=== PATIENT | male | born 1970 | race Caucasian/White ===

== ENCOUNTER 2019-08-31 14:39 | Outpatient (REF) | payer OTHER, SELFPAY ==
[2019-08-31 21:19] LABS: Abs Immature Grans 0.01 k/cumm (0.0-0.09); Absolute Basophil Count 0.03 k/cumm (0.0-0.2); Absolute Eosinophil Count 0.02 k/cumm (0.0-0.7); Absolute Lymphocyte Count 1.31 k/cumm (1.2-3.4); Absolute Monocyte Count 0.51 k/cumm (0.11-0.7); Absolute Neutrophil Count 3.41 k/cumm (1.2-6.7); Basophils % 0.6; Eosinophils % 0.4; HCT 40.5 % (40.0-50.0); HGB 13.8 g/dL (13.5-17.5); Immature Grans % 0.2 %; Lymphocytes % 24.8; Mean Corp. HGB Concentration 34.1 g/dL (32.0-36.0); Mean Corpuscular Hemoglobin 30.1 pg (27.0-33.0); Mean Corpuscular Volume 88.4 fL (80-95); Mean Platelet Volume 11.1 fL (8.0-11.0); Monocytes % 9.6; Neutrophils % 64.4; Platelet Count 288 x1000/uL (130-400); RBC 4.58 m/cumm (4.50-6.00); RBC Distribution Width 12.8 % (11.8-14.1); White Blood Cell Count 5.29 k/cumm (4.4-10.8)
[2019-08-31 21:32] LABS: ALT 74 U/L (16-63); AST 30 U/L (15-37); Albumin 4.5 g/dL (3.4-5.0); Alkaline Phosphatase 48 U/L (46-116); Anion Gap 9.9 mmol/L (3-11); BUN 11 mg/dL (7-18); Bilirubin, Total 0.3 mg/dL (0.2-1.0); CO2 27.1 mmol/L (21.0-32.0); CREATININE 1.05 mg/dL (0.70-1.30); Calcium 9.4 mg/dL (8.5-10.1); Calculated LDL 186 mg/dL (<100); Chloride 102 mmol/L (98-107); Cholesterol 245 mg/dL (<200); Glucose 102 mg/dL (74-106); HDL Cholesterol 42 mg/dL (40-60); Potassium 4.3 mmol/L (3.5-5.1); Sodium 139 mmol/L (136-145); Triglyceride 86 mg/dL (<150)
[2019-08-31 22:04] LABS: ESR 22 mm/hr (0-15)
== END 2019-08-31 14:59 ==
LOC: NCHCN 14:39
PROVIDERS: PCP Family Medicine; Visit Provider Family Medicine
DX: M25.50 Pain in unspecified joint (principal); M62.81 Muscle weakness (generalized)
CPT/HCPCS: 80053; 80061; 85652; 85025

== ENCOUNTER 2019-09-10 20:52 | Outpatient (REF) | payer OTHER, SELFPAY ==
[2019-09-12 10:50] LABS: Lyme Ab w Rflx to Lyme Confirm Negative (Negative)
[2019-09-12 11:09] LABS: HBs Antibody, Quant <3.1 mIU/mL (See Note); Hepatitis B Surface Ab Negative (See Note)
[2019-09-12 11:14] LABS: Hepatitis B Surface Ag Negative (Negative)
[2019-09-12 11:52] LABS: Hepatitis C Ab w Rflx HCV PCR Negative (Negative)
== END 2019-09-10 21:12 ==
LOC: NCHCN 20:52
PROVIDERS: PCP Family Medicine; Visit Provider Internal Medicine
DX: M25.50 Pain in unspecified joint (principal); M62.81 Muscle weakness (generalized); R94.5 Abnormal results of liver function studies; Z11.59 Encounter for screening for other viral diseases
CPT/HCPCS: 86706; 86803; 87340; 86618